=== PATIENT | female | born 1990 | race Caucasian/White ===

== ENCOUNTER 2021-01-03 21:40 | Inpatient (IN) | payer MEDICAID ==
[~2021-01-03] VITALS: Ht 165.1 cm; Wt 84.1 kg
[2021-01-03] MEDS ORDERED: PREN1TAB62 PO (22:22)
[2021-01-03] MEDS ORDERED: IRON1TAB60 PO (22:23)
[2021-01-03 22:41] LABS: MICROSCOPIC INDICATED
[2021-01-03] MEDS ORDERED: LIDOCAINE 1%, 20ML ONE (23:21)
[2021-01-03] MEDS ORDERED: NEWBORN KIT ONE (23:21)
[2021-01-03] MEDS ORDERED: OXYTOCIN 30U/ 0.9% NaCL 500ML 500 ML ONE (23:21)
[2021-01-03] MEDS ORDERED: MISOPROSTOL 200 MCG TABLET ONE (23:21)
[2021-01-03] MEDS ORDERED: OXYTOCIN 30U/ 0.9% NaCL 500ML 500 ML IV ONE (23:30)
[2021-01-03] MEDS ORDERED: LACTATED RINGERS 1,000 ML IV SCH (23:30)
[2021-01-03] MEDS ORDERED: OXYTOCIN 30U/ 0.9% NaCL 500ML 500 ML IV PRN (23:30)
[2021-01-03] MEDS ORDERED: FENTANYL PF 100 MCG/2ML IVPush PRN (23:30)
[2021-01-03] MEDS ORDERED: ONDANSETRON 2MG/ML, 2ML IVPush PRN (23:30)
[2021-01-03] MEDS ORDERED: CALCIUM CARBONATE 500 MG TAB.CHEW PO PRN (23:30)
[2021-01-03] MEDS ORDERED: D5%-LACTATED RINGERS 1,000 ML IV SCH (23:30)
[2021-01-03] MEDS ORDERED: FENTANYL PF 100 MCG/2ML IV PRN (23:30)
[2021-01-03] MEDS ORDERED: TERBUTALINE 1 MG/ML, 1ML SQ PRN (23:30)
[2021-01-03] MEDS ORDERED: TERBUTALINE 1 MG/ML, 1ML IVPush PRN (23:30)
[2021-01-04 00:23] LABS: BASOPHILS % (AUTO) 0 % (0-1); EOSINOPHILS % (AUTO) 0 % (1-7); LYMPHOCYTES % (AUTO) 12 % (22-44); MEAN CORPUSCULAR HEMOGLOBIN 30.1 pg (27.0-34.8); MEAN PLATELET VOLUME 9.6 fL (7.4-10.4); MONOCYTES % (AUTO) 6 % (2-9); NEUTROPHILS % (AUTO) 81 % (42-75); PLATELET COUNT 238 x10^3/uL (130-400); RED BLOOD COUNT 3.92 x10^6/uL (3.82-5.3); RED CELL DISTRIBUTION WIDTH 15.1 % (9.6-15.2)
[2021-01-04 00:30] LABS: MD NO
[2021-01-04] MEDS ORDERED: BUPIVACAINE 0.25% ONE (00:44)
[2021-01-04] MEDS ORDERED: FENTANYL/BUPIV./NS/PF 250 ML EPIDCONT ONE (00:44)
[2021-01-04] MEDS ORDERED: ONDANSETRON 2MG/ML, 2ML IVPush PRN (01:30)
[2021-01-04] MEDS ORDERED: LACTATED RINGERS 1,000 ML IV SCH (01:30)
[2021-01-04] MEDS ORDERED: FENTANYL/BUPIV./NS/PF 250 ML EPIDCONT SCH (01:30)
[2021-01-04] MEDS ORDERED: LACTATED RINGERS 1,000 ML IVBOLUS PRN (01:30)
[2021-01-04] MEDS ORDERED: NALOXONE 0.4 MG/ML, 1ML IVPush PRN (01:30)
[2021-01-04] MEDS ORDERED: EPHEDRINE 50 MG/ML, 1ML IVPush PRN (01:30)
[2021-01-04] MEDS ORDERED: DIPHENHYDRAMINE 50 MG/ML, 1ML IVPush PRN (01:30)
[2021-01-04] MEDS ORDERED: SIMETHICONE 80 MG CHEW TAB PO PRN (04:30)
[2021-01-04] MEDS ORDERED: ONDANSETRON 2MG/ML, 2ML IV PRN (04:30)
[2021-01-04] MEDS ORDERED: OXYcodone/APAP 5/325MG TABLET PO PRN (04:30)
[2021-01-04] MEDS ORDERED: ACETAMINOPHEN 325 MG TABLET PO PRN (04:30)
[2021-01-04] MEDS ORDERED: MISOPROSTOL 200 MCG TABLET PR PRN (04:30)
[2021-01-04] MEDS: OXYTOCIN 30U/ 0.9% NaCL 500ML 500 ML IV SCH ×2 (05:37→14:30)
[2021-01-04 08:00] VITALS: BP 125/77
[2021-01-04] MEDS: IBUPROFEN 600 MG TABLET PO PRN ×3 (09:02→23:06)
[2021-01-04] MEDS: DOCUSATE 100 MG CAPSULE PO PRN (09:02)
[2021-01-04] MEDS: PRENATAL VIT/IRON/FA 1 EACH TABLET PO SCH (09:02)
[2021-01-04 13:45] VITALS: BP 117/76
[2021-01-04 13:50] LABS: BASOPHILS % (AUTO) 1 % (0-1); EOSINOPHILS % (AUTO) 0 % (1-7); LYMPHOCYTES % (AUTO) 11 % (22-44); MEAN CORPUSCULAR HEMOGLOBIN 30.3 pg (27.0-34.8); MEAN CORPUSCULAR HGB CONC 33.3 g/dL (32.4-35.8); MEAN PLATELET VOLUME 9.2 fL (7.4-10.4); MONOCYTES % (AUTO) 7 % (2-9); NEUTROPHILS % (AUTO) 80 % (42-75); PLATELET COUNT 215 x10^3/uL (130-400); RED BLOOD COUNT 3.47 x10^6/uL (3.82-5.3); RED CELL DISTRIBUTION WIDTH 14.8 % (9.6-15.2)
[2021-01-04 13:55] LABS: MD NO
[2021-01-04 18:00] VITALS: BP 121/74
[2021-01-04 20:00] VITALS: BP 121/72
[2021-01-04] MEDS ORDERED: DIPH,PERTUSS(ACELL),TET VAC/PF NC IM-VACC ONE (22:00)
[2021-01-04] MEDS: OXYcodone/APAP 5/325MG TABLET PO PRN (23:06)
[2021-01-05] VITALS: BP 118/70
[2021-01-05] MEDS: OXYcodone/APAP 5/325MG TABLET PO PRN ×2 (03:23→07:54)
[2021-01-05 04:00] VITALS: BP 117/76
[2021-01-05] MEDS: PRENATAL VIT/IRON/FA 1 EACH TABLET PO SCH (07:54)
[2021-01-05] MEDS: IBUPROFEN 600 MG TABLET PO PRN (07:54)
[2021-01-05] MEDS: DOCUSATE 100 MG CAPSULE PO PRN (07:54)
[2021-01-05 08:15] VITALS: BP 125/82
[2021-01-05] MEDS ORDERED: IBUP-1222 PO (09:10)
[2021-01-05] MEDS ORDERED: OXYcodone/APAP 5/325MG TABLET PO PRN ×2 (12:00)
[2021-01-05] MEDS ORDERED: IBUPROFEN 200 MG TABLET PO PRN (12:00)
[2021-01-05] MEDS ORDERED: IBUPROFEN 600 MG TABLET ONE (13:52)
== END 2021-01-05 14:30 | disposition home or self-care (01) | DRG 807 ==
LOC: LDOP 21:40 → LDIP 23:12 → 2NW 01-04 07:43
PROVIDERS: ADMIT Obstetrics & Gynecology; ATTEND Obstetrics & Gynecology
PROC: 10E0XZZ Delivery of Products of Conception, External Approach (ICD-10-PCS; principal; 2021-01-04)
PROC: 0KQM0ZZ Repair Perineum Muscle, Open Approach (ICD-10-PCS; 2021-01-04)
PROC: 3E0R3BZ Introduction of Anesthetic Agent into Spinal Canal, Percutaneous Approach (ICD-10-PCS; 2021-01-04)
PROC: 00HU33Z Insertion of Infusion Device into Spinal Canal, Percutaneous Approach (ICD-10-PCS; 2021-01-04)
DX: O70.1 Second degree perineal laceration during delivery (principal); Z37.0 Single live birth; Z3A.37 37 weeks gestation of pregnancy; Z20.822 Contact with and (suspected) exposure to COVID-19; Z91.018 Allergy to other foods
CPT/HCPCS: 36415; J3490; 81001; 85025; 86592; 86850; 86900; 87086; 87635; G0378; J2590; J3010; J7120